=== PATIENT | female | born 1950 | race Caucasian/White ===

== ENCOUNTER → 2017-07-28 | Outpatient (CLI) | payer OTHER ==
[~2017-07-28] MED LIST: ATOR20 PO; DULO60 PO; Norco 5-325 Ta1 EACH PO
== END | disposition home or self-care (01) ==
LOC: PLD 10:49 → LAB SHORT 10:49
DX: L82.1 Other seborrheic keratosis (principal)
CPT/HCPCS: 88305

== ENCOUNTER 2019-03-01 06:04 | Day surgery (SDC) | payer MEDICARE, OTHER ==
[~2019-03-01] VITALS: Ht 160 cm; Wt 70.4 kg
[~2019-03-01 06:04] MED LIST changes: +Amlodipine Bes2.5 MG PO; +LOSA50 PO; +MAGNESIUM OXID500 MG PO
[2019-03-01] MEDS ORDERED: FENO48 PO (06:52)
[2019-03-01] MEDS ORDERED: PRED20 PO (06:54)
[2019-03-01] MEDS ORDERED: ALBU90OI INH (06:55)
[2019-03-01] MEDS ORDERED: DOCU100 PO (06:55)
== END 2019-03-01 11:06 | disposition home or self-care (01) ==
LOC: ORSCSDS 06:04
PROVIDERS: Otolaryngology
PROC: 09BR4ZZ Excision of Left Maxillary Sinus, Percutaneous Endoscopic Approach (ICD-10-PCS; principal; 2019-03-01 07:30)
PROC: 8E09XBZ Computer Assisted Procedure of Head and Neck Region (ICD-10-PCS; principal; 2019-03-01 07:30)
DX: J32.4 Chronic pansinusitis (principal); I10 Essential (primary) hypertension; E78.5 Hyperlipidemia, unspecified; K21.9 Gastro-esophageal reflux disease without esophagitis; Z79.899 Other long term (current) drug therapy
CPT/HCPCS: 88305; 88311; C2625; J1100; J2250; J2370; J2405; J2704; J2710; J3010; J7120

== ENCOUNTER 2019-12-27 07:06 | Day surgery (SDC) | payer MEDICARE, OTHER ==
[~2019-12-27] VITALS: Ht 160 cm; Wt 71.5 kg
[~2019-12-27 07:06] MED LIST changes: +ALBU90OI INH; +DOCU100 PO; +FENO48 PO; +PRED20 PO
[2019-12-27] MEDS ORDERED: BIOTIN1 MG (07:35)
[2019-12-27] MEDS ORDERED: ZINC15 (07:35)
[2019-12-27] MEDS ORDERED: HAIR, SKIN AND1 EAC1 (07:35)
== END 2019-12-27 09:25 | disposition home or self-care (01) ==
LOC: ORSCSDS 07:06
PROVIDERS: Surgery
PROC: 0DJD8ZZ Inspection of Lower Intestinal Tract, Via Natural or Artificial Opening Endoscopic (ICD-10-PCS; principal; 2019-12-27 08:30)
PROC: 0DJ08ZZ Inspection of Upper Intestinal Tract, Via Natural or Artificial Opening Endoscopic (ICD-10-PCS; principal; 2019-12-27 08:30)
DX: R10.84 Generalized abdominal pain (principal); K62.5 Hemorrhage of anus and rectum; Z12.11 Encounter for screening for malignant neoplasm of colon; Z80.0 Family history of malignant neoplasm of digestive organs; R19.4 Change in bowel habit; R10.9 Unspecified abdominal pain; F32.9 Major depressive disorder, single episode, unspecified; I10 Essential (primary) hypertension; Z79.899 Other long term (current) drug therapy
CPT/HCPCS: 43235; G0105; J0330; J0461; J2405; J2704; J7120

== ENCOUNTER → 2021-11-19 | Outpatient (CLI) | payer OTHER ==
[~2021-11-19] MED LIST changes: +BIOTIN1 MG; +HAIR, SKIN AND1 EAC1; +ZINC15
== END | disposition home or self-care (01) ==
LOC: LAB SHORT 14:57
DX: D22.5 Melanocytic nevi of trunk (principal)
CPT/HCPCS: 88305

== ENCOUNTER 2021-11-26 17:11 | Emergency (ER) | payer OTHER ==
[~2021-11-26] VITALS: Ht 160 cm; Wt 72.1 kg
[2021-11-26] MEDS ORDERED: DULOXETINE HCL60 M1 PO (18:14)
[2021-11-26] MEDS ORDERED: ESZOPICLONE3 MG PO (18:15)
[2021-11-26] MEDS ORDERED: Norco 5-325 Ta1 EACH PO (18:18)
== END 2021-11-26 18:29 | disposition home or self-care (01) ==
LOC: ER 17:11
DX: S83.411A Sprain of medial collateral ligament of right knee, initial encounter (principal); I12.9 Hypertensive chronic kidney disease with stage 1 through stage 4 chronic kidney disease, or unspecified chronic kidney disease; N18.30 Chronic kidney disease, stage 3 unspecified; W54.1XXA Struck by dog, initial encounter; Z79.899 Other long term (current) drug therapy; Z88.5 Allergy status to narcotic agent; Z88.1 Allergy status to other antibiotic agents; Z88.8 Allergy status to other drugs, medicaments and biological substances; Z91.09 Other allergy status, other than to drugs and biological substances
CPT/HCPCS: 29505; 73562-RT; 99283-25; A9270

== ENCOUNTER → 2022-10-06 | Outpatient (CLI) | payer OTHER ==
[~2022-10-06] MED LIST changes: +BENZ100A PO; +DULOXETINE HCL60 M1 PO; +ESZOPICLONE3 MG PO
== END | disposition home or self-care (01) ==
LOC: LAB SHORT 12:24 → PLD 12:24
DX: L25.9 Unspecified contact dermatitis, unspecified cause (principal)
CPT/HCPCS: 88305; 88312

== ENCOUNTER → 2024-12-23 | Outpatient (CLI) | payer OTHER | END | disposition home or self-care (01) | LOC: LAB SHORT 09:30 → LAB 09:30 | DX: R30.0 Dysuria (principal) | CPT/HCPCS: 87077; 87086; 87186 ==